=== PATIENT | female | born 1995 | race Caucasian/White ===

== ENCOUNTER 2018-01-30 23:30 | Emergency (ER) | payer BC, OTHER ==
[2018-01-30] MEDS ORDERED: ONDANSETRON 4 MG/2 ML VIAL ONE ×2 (23:45→23:49)
[2018-01-30] MEDS ORDERED: NA CHLORIDE 0.9% 1,000 ML ONE (23:49)
[2018-01-30 23:58] LABS: Absolute Lymphocytes (CBC) 2.6 K/uL (0.7-4.9); Absolute Monocytes 0.9 K/uL (0.1-1.3); Absolute Neutrophil 8.8 K/uL (1.8-8.0); Basophils % 0.7 % (0-1.3); Eosinophils % 0.9 % (0-4.4); Hematocrit 37.8 % (36.0-45.0); MCH 30.6 pg (27.0-35.0); MCV 88.6 fL (80-100); MPV 7.6 fL (7.6-11.3); Monocytes % 7.5 % (3.3-12.3); RBC Red Blood Cell Count 4.26 M/uL (3.86-4.86)
[2018-01-31 00:02] LABS: Protime INR 1.02
[2018-01-31 00:10] LABS: Bicarbonate 21 mEq/L (21-31); Glucose Level 117 mg/dL (65-120); Lipase 21 U/L (22-51); Potassium 3.2 mEq/L (3.6-5.0); Sodium Level 137 mEq/L (135-145)
[2018-01-31 00:16] LABS: ALT/SGPT 20 IU/L (10-60); AST/SGOT 22 IU/L (10-42); Albumin 4.2 g/dL (3.2-5.5); Alkaline Phosphatase 52 IU/L (42-121); Amylase Level 42 U/L (28-100); BUN Blood Urea Nitrogen 19 mg/dL (6-20); Bilirubin Direct < 0.1 mg/dL (0-0.2); Bilirubin Total 0.4 mg/dL (0.3-1.2); Creatine Phosphokinase 78 IU/L (22-269); Magnesium 1.7 mg/dL (1.8-2.5); Protein, Total 7.6 g/dL (6.0-8.3)
[2018-01-31 00:19] LABS: CKMB Creatine Kinase MB 0.9 ng/ml (0.3-4.0)
[2018-01-31 00:56] LABS: Urine Blood NEGATIVE (NEG); Urine Glucose NEGATIVE (NEG); Urine Protein NEGATIVE (NEG); Urine pH 6.5 (5.0-7.0)
--- NOTE | 2018-01-31 01:20 | ER ---
Nurse's Notes [facility] Name: Rosa Agee Age: 22 yrs Sex: Female : 1995 Arrival Date: 01/30/2018 Time: 23:32 Bed 6 Private MD: Diagnosis: Dehydration;Hypomagnesemia;Hypokalemia Presentation: 01/30 23:32 Presenting complaint: EMS states: they were called for pt drinking at local bar felt ak1 light headed with near syncopal episode. pt A\T\OX4 in ER6. no LOC reported. Transition of care: patient was not received from another setting of care. Onset of symptoms was January 30, 2018. Initial Sepsis Screen: Does the patient meet any 2 criteria? No. Patient's initial sepsis screen is negative. Does the patient have a suspected source of infection? No. Patient's initial sepsis screen is negative. Care prior to arrival: 22g to right hand. 23:32 Method Of Arrival: EMS: [facility] ak1 23:32 Acuity: YANELY 3 ak1 Triage Assessment: 23:35 General: Appears in no apparent distress. Behavior is calm, cooperative. Pain: Denies ak1 pain. EENT: No signs and/or symptoms were reported regarding the EENT system. Neuro: Level of Consciousness is awake, alert, obeys commands, Oriented to person, place, time, situation, Coping Machine Operator are equal bilaterally Moves all extremities. Gait is steady, Speech is normal, Facial symmetry appears normal, Pupils are PERRLA. Cardiovascular: No deficits noted. Respiratory: No deficits noted. GI: Reports nausea. : No signs and/or symptoms were reported regarding the genitourinary system. Derm: No signs and/or symptoms reported regarding the dermatologic system. Musculoskeletal: No signs and/or symptoms reported regarding the musculoskeletal system. 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 - Social history:: Smoking status: Patient/guardian denies using tobacco. - Family history:: not pertinent. - Hospitalizations: : No recent hospitalization is reported. - History obtained from: mother. Screenin:37 Abuse screen: Denies threats or abuse. Denies injuries from another. Nutritional ak1 screening: No deficits noted. Tuberculosis screening: No symptoms or risk factors identified. Fall Risk None identified. Assessment: 23:39 General: Appears in no apparent distress. Behavior is calm, cooperative, see triage ak1 assessment. 01/31 01:07 Reassessment: Patient appears in no apparent distress at this time. No changes from ak1 previously documented assessment. Patient and/or family updated on plan of care and expected duration. Pain level reassessed. Patient is alert, oriented x 3, equal unlabored respirations, skin warm/dry/pink. Patient states symptoms have improved. Vital Signs: 01/30 23:35 BP 108 / 70 LA Sitting (auto/reg); Pulse 66; Resp 16; Temp 98.4(O); Pulse Ox 98% on ak1 R/A; Weight 68.04 kg (R); Height 5 ft. 3 in. (160.02 cm) (R); Pain 0/10; 23:51 BP 106 / 60 Supine; Pulse 63; mt 23:51 BP 102 / 59 Sitting; Pulse 59; mt 23:51 BP 90 / 73 Standing; Pulse 88; mt 01/31 00:45 BP 117 / 67; Pulse 67; Resp 16; Pulse Ox 98% on R/A; Pain 0/10; ak1 01:07 BP 111 / 67; Pulse 62; Resp 16; Pulse Ox 99% on R/A; Pain 0/10; ak1 01/30 23:35 Body Mass Index 26.57 (68.04 kg, 160.02 cm) ak1 ED Course: 01/30 23:32 Patient arrived in ED. am2 23:32 Monica Kerr, RN is Primary Nurse. ak1 23:33 Juliet Carlos FNP is PHCP. kav 23:33 Alejandro Lott MD is Attending Physician. kav 23:34 Triage completed. ak1 23:35 Arm band placed on Patient placed in an exam room, on a stretcher, on pulse oximetry, ak1 Patient notified of wait time. 23:37 Patient has correct armband on for positive identification. Placed in gown. Bed in low ak1 position. Call light in reach. Side rails up X 1. retail buyer on. Pulse ox on. NIBP on. 23:37 Maintain EMS IV. Dressing intact. Good blood return noted. Site clean \T\ dry. Gauge \T\ ak 1 site: 22g right hand. 01/31 01:35 No provider procedures requiring assistance completed. IV discontinued, intact, ak1 bleeding controlled, No redness/swelling at site. Pressure dressing applied. Administered Medications: 01/30 23:50 Drug: NS 0.9% 1000 ml Route: IV; Rate: 1 bolus; Site: right hand; ak1 01/31 01:06 Follow up: IV Status: Completed infusion ak1 01/30 23:50 Drug: Zofran 4 mg Route: IVP; Site: right hand; ak1 01/31 00:29 Follow up: Response: No adverse reaction ak1 01:06 Follow up: Response: No adverse reaction ak1 01:35 Drug: Potassium Chloride 20 mEq Route: PO; ak1 01:35 Follow up: Response: Medication administered at discharge. ak1 01:35 Drug: Magnesium 400 mg Route: PO; ak1 01:35 Follow up: Response: Medication administered at discharge. ak1 Outcome: 01:19 Discharge ordered by . gomez 01:36 Discharged to home ambulatory, with family. ak1 01:36 Condition: good 01:36 Discharge instructions given to patient, family, Instructed on discharge instructions, follow up and referral plans. no drinking with medication, no driving heavy equipment, medication usage, Demonstrated understanding of instructions, follow-up care, medications, Prescriptions given X 1. 01:36 Patient left the ED. ak1 Signatures: Juliet Carlos, INTERNET ARCHITECT Monica Beal RN RN ak1 Elizabeth Montilla Moriah mt Corrections: (The following items were deleted from the chart) 01/30 23:52 23:37 Inserted saline lock: 22 gauge in right hand, using aseptic technique. ak1 ak1
--- NOTE | 2018-01-31 01:20 | EDPHYS ---
Physician Documentation [facility] Name: Rosa Agee Age: 22 yrs Sex: Female : 1995 Arrival Date: 01/30/2018 Time: 23:32 Bed 6 Private MD: ED Physician Alejandro Lott HPI: 01/30 23:41 This 22 yrs old Female presents to ER via EMS with complaints of Near Syncope.kav 01/31 00:32 The patient has experienced near-syncope, almost passed out. Onset: The kav symptoms/episode began/occurred acutely, just prior to arrival. Duration: This was a single episode. Context: the episode(s) was witnessed, by family, mother. Associated injury: The patient did not suffer any apparent associated injury. Associated signs and symptoms: Pertinent positives: diaphoresis, lightheadedness, nausea, Pertinent negatives: abdominal pain, agitation, ataxia, blurred vision, chest pain, combativeness, confusion, diarrhea, headache, numbness, palpitations, not seizure, shortness of breath, tingling, vertigo, vomiting, weakness. Current symptoms: Currently, the patient is not experiencing any symptoms, the patient feels back to baseline, no decreased level of consciousness, no confusion, no dysphasia, no headache, no paralysis, no visual changes. The patient has not experienced similar symptoms in the past. pt reports being at [employer] last week and became dehydrated. she consumed an alcoholic beverage this evening and had a near syncopal episode. 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 - Social history:: Smoking status: Patient/guardian denies using tobacco. - Family history:: not pertinent. - Hospitalizations: : No recent hospitalization is reported. - History obtained from: mother. ROS: 01/31 00:35 Constitutional: Negative for fever, chills, and weight loss, Eyes: Negative for injury, kav pain, redness, and discharge, ENT: Negative for injury, pain, and discharge, Neck: Negative for injury, pain, and swelling, Cardiovascular: Negative for chest pain, palpitations, and edema, Respiratory: Negative for shortness of breath, cough, wheezing, and pleuritic chest pain, Abdomen/GI: Negative for abdominal pain, nausea, vomiting, diarrhea, and constipation, Back: Negative for injury and pain, : Negative for injury, bleeding, discharge, and swelling, MS/Extremity: Negative for injury and deformity, Skin: Negative for injury, rash, and discoloration, Psych: Negative for depression, anxiety, suicide ideation, homicidal ideation, and hallucinations, Allergy/Immunology: Negative for hives, rash, and allergies, Endocrine: Negative for neck swelling, polydipsia, polyuria, polyphagia, and marked weight changes, Hematologic/Lymphatic: Negative for swollen nodes, abnormal bleeding, and unusual bruising. Neuro: Positive for near syncope, Negative for altered mental status, dizziness, gait disturbance, headache, hearing loss, loss of consciousness, numbness, seizure activity, speech changes, syncope, tingling, tinnitus, tremor, visual changes, weakness. Exam: 00:35 Constitutional: This is a well developed, well nourished patient who is awake, alert, kav and in no acute distress. Head/Face: Normocephalic, atraumatic. Eyes: Pupils equal round and reactive to light, extra-ocular motions intact. Lids and lashes normal. Conjunctiva and sclera are non-icteric and not injected. Cornea within normal limits. Periorbital areas with no swelling, redness, or edema. ENT: Nares patent. No nasal discharge, no septal abnormalities noted. Tympanic membranes are normal and external auditory canals are clear. Oropharynx with no redness, swelling, or masses, exudates, or evidence of obstruction, uvula midline. Mucous membranes moist. Neck: Trachea midline, no thyromegaly or masses palpated, and no cervical lymphadenopathy. Supple, full range of motion without nuchal rigidity, or vertebral point tenderness. No Meningismus. Chest/axilla: Normal chest wall appearance and motion. Nontender with no deformity. No lesions are appreciated. Cardiovascular: Regular rate and rhythm with a normal S1 and S2. No gallops, murmurs, or rubs. Normal PMI, no JVD. No pulse deficits. Respiratory: Lungs have equal breath sounds bilaterally, clear to auscultation and percussion. No rales, rhonchi or wheezes noted. No increased work of breathing, no retractions or nasal flaring. Abdomen/GI: Soft, non-tender, with normal bowel sounds. No distension or tympany. No guarding or rebound. No evidence of tenderness throughout. Back: No spinal tenderness. No costovertebral tenderness. Full range of motion. Skin: Warm, dry with normal turgor. Normal color with no rashes, no lesions, and no evidence of cellulitis. MS/ Extremity: Pulses equal, no cyanosis. Neurovascular intact. Full, normal range of motion. Psych: Awake, alert, with orientation to person, place and time. Behavior, mood, and affect are within normal limits. 00:35 Neuro: Orientation: is normal, appropriate for stated age, no acute changes, per family, Mentation: is normal, appropriate for stated age, no acute changes, responsive to voice lucid, able to follow commands, Memory: is normal, appropriate for stated age, no acute changes, per family, Cranial nerves: grossly normal, is grossly normal based on the patient's age, no acute changes, CN I not tested, CN II- XII are normal as tested, upper altitudinal loss noted, Funduscopic exam reveals no obvious abnormalities, discs that are sharp, extraocular movements are intact, facial droop noted on right, Nystagmus is absent. Cerebellar function: is grossly normal, is grossly normal based on the patient's age, no acute changes, Romberg testing is negative, normal finger to nose testing, heel to rodriguez testing is normal, able to perform alternating rapid hand movements, Motor: is normal, Sensation: is normal, no obvious gross deficits, appropriate no acute changes, Gait: is steady, appropriate for age, Deep tendon reflexes are normal, Babinski testing is normal, seizure activity, is not displayed by the patient, Abnormal movements: there are no abnormal movements. Vital Signs: 01/30 23:35 BP 108 / 70 LA Sitting (auto/reg); Pulse 66; Resp 16; Temp 98.4(O); Pulse Ox 98% on ak1 R/A; Weight 68.04 kg (R); Height 5 ft. 3 in. (160.02 cm) (R); Pain 0/10; 23:51 BP 106 / 60 Supine; Pulse 63; mt 23:51 BP 102 / 59 Sitting; Pulse 59; mt 23:51 BP 90 / 73 Standing; Pulse 88; mt 01/31 00:45 BP 117 / 67; Pulse 67; Resp 16; Pulse Ox 98% on R/A; Pain 0/10; ak1 01:07 BP 111 / 67; Pulse 62; Resp 16; Pulse Ox 99% on R/A; Pain 0/10; ak1 01/30 23:35 Body Mass Index 26.57 (68.04 kg, 160.02 cm) [facility] MDM: 01/30 23:33 Medical screening is not applicable. 01/31 00:35 ECG was reviewed by the Attending Physician. NSR \T\ 65 bpm. Data reviewed: vital signs, [facility] nurses notes, lab test result(s). 01/30 23:43 Order name: Amylase, Serum; Complete Time: : 01/31 01:17 Interpretation: Within normal limits. 01/30 23:43 Order name: Basic Metabolic Panel; Complete Time: 01/31 01:17 Interpretation: Normal except: K 3.2. 01/30 23:43 Order name: BNP; Complete Time: :01/31 01:17 Interpretation: Within normal limits. 01/30 23:43 Order name: CBC with Diff; Complete Time: : 01/31 01:17 Interpretation: Normal except: WBC 12.6; PLT 411; RDW 12.0; NEUT A 8.8. 01/30 23:43 Order name: Ckmb; Complete Time: : 01/31 01:17 Interpretation: Within normal limits. 01/30 23:43 Order name: CPK; Complete Time: :18 01/31 01:18 Interpretation: Within normal limits. 01/30 23:43 Order name: Hepatic Function; Complete Time: :01/31 01:18 Interpretation: Within normal limits. 01/30 23:43 Order name: Lipase; Complete Time: : 01/31 01:17 Interpretation: Abnormal. 01/30 23:43 Order name: Magnesium; Complete Time: :01/31 01:17 Interpretation: Abnormal. 01/30 23:43 Order name: Protime (+inr); Complete Time: 01:18 kav 01/31 01:18 Interpretation: Within normal limits. 01/30 23:43 Order name: Ptt, Activated; Complete Time: 01:17 kav 01/31 01:17 Interpretation: Abnormal. 01/30 23:43 Order name: Troponin (emerg Dept Use Only); Complete Time: 01:18 kav 01/31 01:18 Interpretation: Within normal limits. 01/31 00:39 Order name: Urine Dipstick--Ancillary (enter results); Complete Time: 01:16 01/31 01:16 Interpretation: Within normal limits. 01/31 00:39 Order name: Urine --Ancillary (enter results); Complete Time: :16 01/31 01:16 Interpretation: Within normal limits. 01/30 23:43 Order name: Urine Test (obtain specimen); Complete Time: 00:51 kav 01/30 23:43 Order name: EKG; Complete Time: 23:44 kav 01/30 23:43 Order name: Cardiac monitoring; Complete Time: 23:50 kav 01/30 23:43 Order name: EKG - Nurse/Tech; Complete Time: 23:51 kav 01/30 23:43 Order name: IV Saline Lock; Complete Time: 23:50 kav 01/30 23:44 Order name: Labs collected and sent; Complete Time: 23:50 kav 01/30 23:44 Order name: NPO; Complete Time: 23:50 kav 01/30 23:44 Order name: O2 Per Protocol; Complete Time: 23:50 kav 01/30 23:44 Order name: O2 Sat Monitoring; Complete Time: 23:50 kav 01/30 23:44 Order name: Urine Dipstick-Ancillary (obtain specimen); Complete Time: 00:51 kav Administered Medications: 01/30 23:50 Drug: NS 0.9% 1000 ml Route: IV; Rate: 1 bolus; Site: right hand; [facility] 01/31 01:06 Follow up: IV Status: Completed infusion wy1 01/30 23:50 Drug: Zofran 4 mg Route: IVP; Site: right hand; wy01/31 00:29 Follow up: Response: No adverse reaction ak1 01:06 Follow up: Response: No adverse reaction ak1 01:35 Drug: Potassium Chloride 20 mEq Route: PO; ak1 01:35 Follow up: Response: Medication administered at discharge. ak1 01:35 Drug: Magnesium 400 mg Route: PO; ak1 01:35 Follow up: Response: Medication administered at discharge. ak1 Disposition: 07:07 Co-signature as Attending Physician, Alejandro Lott MD I agree with the assessment and frank plan of care. Disposition: 01/31/18 01:19 Discharged to Home. Impression: Dehydration, Hypomagnesemia, Hypokalemia. - Condition is Stable. - Discharge Instructions: Hypomagnesemia, Dehydration, Adult, [id number], Hypokalemia. - Prescriptions for Zofran 4 mg Oral Tablet - take 1 tablet by ORAL route every 12 hours As needed; 20 tablet. - Medication Reconciliation Form, Thank You Letter, Antibiotic Education, Prescription Opioid Use form. - Follow up: Private Physician; When: 5 - 6 days; Reason: If symptoms return, Recheck today's complaints, Continuance of care, Re-evaluation by your physician. - Problem is new. - Symptoms have improved. - Notes: ensure adequate hydration Signatures: Dispatcher [employer] EDAlejandro Johnson MD MD cha Vern, Katherine, WAX ENGRAVER WAX ENGRAVER Monica Niño, RN RN ak1 Corrections: (The following items were deleted from the chart) 01:36 01:19 01/31/2018 01:19 Discharged to Home. Impression: Dehydration; Hypomagnesemia; ak1 Hypokalemia. Condition is Stable. Forms are Medication Reconciliation Form, Thank You Letter, Antibiotic Education, Prescription Opioid Use. Follow up: Private Physician; When: 5 - 6 days; Reason: If symptoms return, Recheck today's complaints, Continuance of care, Re-evaluation by your physician. Problem is new. Symptoms have improved. kav
[2018-01-31] MEDS ORDERED: POTASSIUM CL SA 10 MEQ TAB PO ONE (01:29)
[2018-01-31] MEDS ORDERED: MAGNESIUM OXIDE 400 MG TAB ONE (01:29)
--- NOTE | 2018-01-31 16:23 | EKG ---
Test Date: 2018-01-30 Test Time: 23:46:42 Bacteriologist Soil: TYRA MEASUREMENT RESULTS: Intervals: Rate: 65 CA: 142 QRSD: 92 QT: 412 QTc: 428 [place]: P: 59 CA: 142 QRS: 56 T: 31 INTERPRETIVE STATEMENTS: Normal sinus rhythm Normal ECG Compared to ECG 11/09/2011 10:15:51 Sinus bradycardia no longer present Electronically Signed On 01-31-18 16:20:00 CDT by Han Whitley
== END 2018-01-31 01:36 | disposition home or self-care (01) ==
LOC: ER 23:30
DX: E86.0 Dehydration (principal); E83.42 Hypomagnesemia; E87.6 Hypokalemia
CPT/HCPCS: 36415; 80048; 80076; 81003; 81025; 82150; 82550; 82553; 83690; 83735; 83880; 84484; 85025; 85610; 85730; 93005; 96361; 96374; 99284; J2405; J7030

== ENCOUNTER 2018-09-25 03:23 | Emergency (ER) | payer BC ==
[2018-09-25 04:21] LABS: Urine Blood TRACE (NEG); Urine Glucose NEGATIVE (NEG); Urine Protein TRACE (NEG); Urine Specific Gravity 1.015 (1.005-1.030); Urine pH 7.5 (5.0-7.0)
[2018-09-25 04:21] LABS: Urine Specific Gravity 1.015 (1.005-1.030)
[2018-09-25] MEDS ORDERED: NA CHLORIDE 0.9% 1,000 ML ONE (04:47)
[2018-09-25] MEDS ORDERED: ONDANSETRON 4 MG/2 ML VIAL ONE (04:47)
[2018-09-25] MEDS ORDERED: FAMOTIDINE 20 MG/2 ML VIAL IV ONE (05:03)
[2018-09-25 05:08] LABS: Absolute Lymphocytes (CBC) 1.8 K/uL (0.7-4.9); Absolute Monocytes 0.5 K/uL (0.1-1.3); Absolute Neutrophil 11.6 K/uL (1.8-8.0); Basophils % 0.6 % (0-1.3); Eosinophils % 0.3 % (0-4.4); Hematocrit 39.7 % (36.0-45.0); Lymphocytes % 12.7 % (15.3-44.8); Monocytes % 3.9 % (3.3-12.3); RBC Red Blood Cell Count 4.56 M/uL (3.86-4.86)
[2018-09-25 05:24] LABS: ALT/SGPT 29 U/L (12-78); AST/SGOT 16 U/L (15-37); Alkaline Phosphatase 69 U/L (45-117); BUN Blood Urea Nitrogen 15 mg/dL (7-18); Bicarbonate 24 mmol/L (21-32); Bilirubin Direct 0.2 mg/dL (0-0.2); Bilirubin Total 0.4 mg/dL (0.2-1.0); Glucose Level 146 mg/dL (74-106); Lipase 99 U/L (73-393); Potassium 3.9 mmol/L (3.5-5.1); Protein, Total 8.1 g/dL (6.4-8.2); Sodium Level 140 mmol/L (136-145)
[2018-09-25] MEDS ORDERED: PIPER/TAZO/NS 3.375gm 3.375 GM/100 ML BAG ONE (06:07)
[2018-09-25] MEDS ORDERED: FENTANYL CITR 100 MCG/2 ML ONE (06:21)
--- NOTE | 2018-09-25 06:43 | RAD REPORT ---
EXAM DESCRIPTION: RAD - Chest Single View - 09/25/2018 4:54 am CLINICAL HISTORY: Epigastric pain, back pain COMPARISON: None. TECHNIQUE: AP portable chest image was obtained 0445 hours . FINDINGS: Lungs are clear. Heart and vasculature are normal. No measurable pleural effusion and no p neumothorax. No acute bony abnormality seen. No acute aortic findings suspected. IMPRESSION: No acute cardiopulmonary process.
--- NOTE | 2018-09-25 07:02 | ER ---
Nurse's Notes [facility] Name: Rosa Agee Age: 22 yrs Sex: Female : 1995 Arrival Date: 09/25/2018 Time: 03:30 Bed 16 Private MD: Diagnosis: Abdominal tenderness;Chest pain, unspecified;Dyspnea, unspecified Presentation: 09/25 03:34 Presenting complaint: Patient states: epigastric pain, back pain and vomiting started ak1 suddenly at 0130. Transition of care: patient was not received from another setting of care. Onset of symptoms was September 25, 2018. Risk Assessment: Do you want to hurt yourself or someone else? Patient reports no desire to harm self or others. Initial Sepsis Screen: Does the patient meet any 2 criteria? No. Patient's initial sepsis screen is negative. Does the patient have a suspected source of infection? No. Patient's initial sepsis screen is negative. Care prior to arrival: None. 03:34 Acuity: YANELY 3 ak1 03:34 Method Of Arrival: Ambulatory ak1 Triage Assessment: 03:36 General: Appears uncomfortable, slender, Behavior is calm, cooperative. Pain: Complains ak1 of pain in epigastric area. EENT: No signs and/or symptoms were reported regarding the EENT system. Neuro: No deficits noted. Cardiovascular: Reports chest pain, Heart tones S1 S2 Rhythm is regular. Respiratory: No deficits noted. GI: Abdomen is flat, Bowel sounds present X 4 quads. Reports nausea, vomiting, since 0130. : No signs and/or symptoms were reported regarding the genitourinary system. Derm: No signs and/or symptoms reported regarding the dermatologic system. Musculoskeletal: No signs and/or symptoms reported regarding the musculoskeletal system. 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 - Social history:: Smoking status: Patient/guardian denies using tobacco. - Ebola Screening: : No symptoms or risks identified at this time. - Family history:: not pertinent. Screenin:37 Abuse screen: Denies threats or abuse. Denies injuries from another. Nutritional ak1 screening: No deficits noted. Tuberculosis screening: No symptoms or risk factors identified. Fall Risk None identified. Assessment: 03:37 Pain: Pain does not radiate. Pain began 3 hours ago. ak1 03:38 Reassessment: Patient appears in no apparent distress at this time. No changes from ak1 previously documented assessment. see triage assessment. 04:17 Reassessment: pt vomited X1 in ER16, yellow bile. ak1 04:57 Reassessment: Patient appears in no apparent distress at this time. No changes from ak1 previously documented assessment. Patient and/or family updated on plan of care and expected duration. Pain level reassessed. Patient is alert, oriented x 3, equal unlabored respirations, skin warm/dry/pink. Patient states feeling better. Patient states symptoms have improved. 06:00 Reassessment: Patient appears in no apparent distress at this time. No changes from ak1 previously documented assessment. Patient and/or family updated on plan of care and expected duration. Pain level reassessed. Patient is alert, oriented x 3, equal unlabored respirations, skin warm/dry/pink. pt returned from CT. 06:19 Reassessment: pt and family informed of wait for US. pt resting comfortably will ak1 continue to monitor. 06:52 Reassessment: US at bedside. ak1 Vital Signs: 03:33 BP 122 / 77; Pulse 104; Resp 16; Temp 98.7(O); Pulse Ox 99% on R/A; Weight 70.76 kg ak1 (R); Height 5 ft. 3 in. (160.02 cm) (R); Pain 5/10; 04:17 Pulse 82; Resp 19; Pulse Ox 99% on R/A; ak1 06:13 BP 113 / 65; Pulse 75; Resp 16; Temp 98.7(O); Pulse Ox 99% on R/A; Pain 5/10; ak1 03:33 Body Mass Index 27.63 (70.76 kg, 160.02 cm) ak1 ED Course: 03:30 Patient arrived in ED. ag3 03:33 Monica Kerr, RN is Primary Nurse. ak1 03:33 Arm band placed on Patient placed in an exam room, on a stretcher, on pulse oximetry, ak1 Patient notified of wait time. 03:35 Triage completed. ak1 03:37 Patient has correct armband on for positive identification. Bed in low position. Call ak1 light in reach. Side rails up X 1. Adult w/ patient. flight follower on. Pulse ox on. NIBP on. 03:37 Patient maintains SpO2 saturation greater than 95% on room air. ak1 03:54 Alejandro Lott MD is Attending Physician. frank 04:01 EKG completed in triage. Results shown to MD. Antipyretics given from triage as ordered ak1 by an ER provider. EKG done per protocol. Performed by ED Staff. Shown to ED physician. 04:08 Initial lab(s) drawn, by me, Urine collected: clean catch specimen, EKG done, by ED ak1 staff, reviewed by Alejandro Lott MD. Inserted saline lock: 22 gauge in left antecubital area, using aseptic technique. Blood collected. 04:56 Chest Single View XRAY In Process Unspecified. EDMS 05:15 Radiology exam delayed due to lab results not completed at this time. (HCG) kw1 (BUN/Creatinine). 05:[address] via wheelchair. kw1 05:49 CT Aorta for Dissection In Process Unspecified. EDMS 05:51 CT completed. Patient tolerated procedure well. Patient moved back from CT. kw1 07:01 Christiano Lester MD is Referral Physician. frank 07:01 Barry Smith MD is Referral Physician. frank 07:07 Ultrasound completed. Patient tolerated well. aa4 07:11 US Abdomen Limited In Process Unspecified. EDMS 07:24 No provider procedures requiring assistance completed. IV discontinued, intact, jl7 bleeding controlled, No redness/swelling at site. Pressure dressing applied. Administered Medications: 04:43 Drug: NS 0.9% 1000 ml Route: IV; Rate: 1 bolus; Site: left antecubital; ak1 06:08 Follow up: IV Status: Completed infusion; IV Intake: 1000ml ak1 04:43 Drug: Zofran 4 mg Route: IVP; Site: left antecubital; ak1 04:56 Follow up: Response: Nausea is decreased ak1 04:56 Drug: Pepcid 20 mg Route: IVP; Site: left antecubital; ak1 05:17 Follow up: Response: No adverse reaction ak1 06:08 Drug: Zosyn 3.375 grams Route: IVPB; Infused Over: 60 mins; Site: left antecubital; ak1 07:08 Follow up: Response: No adverse reaction; IV Status: Completed infusion jl7 06:18 Drug: fentaNYL (PF) 25 mcg Route: IVP; Site: left antecubital; ak1 06:18 Follow up: Response: Pain is decreased ak1 07:22 Not Given (Duplicate Order): fentaNYL (PF) 25 mcg IVP once jl7 Intake: 06:08 IV: 1000ml; Total: 1000ml. ak1 Outcome: 07:02 Discharge ordered by . frank 07:24 Discharged to home ambulatory, with family. jlNila 07:24 Condition: stable 07:24 Discharge instructions given to patient, family, Instructed on discharge instructions, follow up and referral plans. medication usage, Demonstrated understanding of instructions, follow-up care, medications, Prescriptions given X 2. 07:25 Patient left the ED. jl7 Signatures: Dispatcher [employer] EDMS Alejandro Lott MD MD cha Frazier, Amanda aa4 Monica Kerr RN RN ak1 Juancarlos Hamilton RN RN jl7 Tawnya Leung Alice ag3
--- NOTE | 2018-09-25 07:03 | EDPHYS ---
Physician Documentation [facility] Name: Rosa Aege Age: 22 yrs Sex: Female : 1995 Arrival Date: 09/25/2018 Time: 03:30 Bed 16 Private MD: ED Physician Alejandro Lott HPI: 09/25 04:24 This 22 yrs old Female presents to ER via Ambulatory with complaints of Chest frank Pain, Shortness Of Breath. 04:24 The patient or guardian reports chest pain that is located primarily in the epigastric frank area, anterior chest wall, bilaterally. The pain radiates to back. Associated signs and symptoms: The patient has no apparent associated signs or symptoms. The chest pain is described as a pressure, sharp. Duration: The patient or guardian reports a single episode, that is still ongoing. Modifying factors: The symptoms are alleviated by remaining still, the symptoms are aggravated by breathing, cough, movement, palpation of area. Severity of pain: At its worst the pain was moderate in the emergency department the pain is unchanged. The patient has not experienced similar symptoms in the past. 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 - Social history:: Smoking status: Patient/guardian denies using tobacco. - Ebola Screening: : No symptoms or risks identified at this time. - Family history:: not pertinent. ROS: 04:24 Constitutional: Negative for fever, chills, and weight loss, Eyes: Negative for injury, frank pain, redness, and discharge, ENT: Negative for injury, pain, and discharge, Neck: Negative for injury, pain, and swelling, Cardiovascular: Negative for chest pain, palpitations, and edema, Respiratory: Negative for shortness of breath, cough, wheezing, and pleuritic chest pain, Back: Negative for injury and pain, : Negative for injury, bleeding, discharge, and swelling, MS/Extremity: Negative for injury and deformity, Skin: Negative for injury, rash, and discoloration, Neuro: Negative for headache, weakness, numbness, tingling, and seizure, Psych: Negative for depression, anxiety, suicide ideation, homicidal ideation, and hallucinations, Allergy/Immunology: Negative for hives, rash, and allergies, Endocrine: Negative for neck swelling, polydipsia, polyuria, polyphagia, and marked weight changes, Hematologic/Lymphatic: Negative for swollen nodes, abnormal bleeding, and unusual bruising. 04:24 Abdomen/GI: Positive for abdominal pain, nausea and vomiting, of the epigastric area, right upper quadrant and left upper quadrant. Exam: 04:24 Constitutional: This is a well developed, well nourished patient who is awake, alert, frank and in no acute distress. Head/Face: Normocephalic, atraumatic. Eyes: Pupils equal round and reactive to light, extra-ocular motions intact. Lids and lashes normal. Conjunctiva and sclera are non-icteric and not injected. Cornea within normal limits. Periorbital areas with no swelling, redness, or edema. ENT: Nares patent. No nasal discharge, no septal abnormalities noted. Tympanic membranes are normal and external auditory canals are clear. Oropharynx with no redness, swelling, or masses, exudates, or evidence of obstruction, uvula midline. Mucous membranes moist. Neck: Trachea midline, no thyromegaly or masses palpated, and no cervical lymphadenopathy. Supple, full range of motion without nuchal rigidity, or vertebral point tenderness. No Meningismus. Chest/axilla: Normal chest wall appearance and motion. Nontender with no deformity. No lesions are appreciated. Cardiovascular: Regular rate and rhythm with a normal S1 and S2. No gallops, murmurs, or rubs. Normal PMI, no JVD. No pulse deficits. Respiratory: Lungs have equal breath sounds bilaterally, clear to auscultation and percussion. No rales, rhonchi or wheezes noted. No increased work of breathing, no retractions or nasal flaring. Back: No spinal tenderness. No costovertebral tenderness. Full range of motion. Skin: Warm, dry with normal turgor. Normal color with no rashes, no lesions, and no evidence of cellulitis. MS/ Extremity: Pulses equal, no cyanosis. Neurovascular intact. Full, normal range of motion. Neuro: Awake and alert, GCS 15, oriented to person, place, time, and situation. Cranial nerves II-XII grossly intact. Motor strength 5/5 in all extremities. Sensory grossly intact. Cerebellar exam normal. Normal gait. Psych: Awake, alert, with orientation to person, place and time. Behavior, mood, and affect are within normal limits. 04:24 Abdomen/GI: Inspection: abdomen appears normal, Bowel sounds: normal, Palpation: mild abdominal tenderness, moderate abdominal tenderness, in the epigastric area, right upper quadrant and left upper quadrant, Liver: no appreciated palpable abnormalities, Hernia: not appreciated. Vital Signs: 03:33 BP 122 / 77; Pulse 104; Resp 16; Temp 98.7(O); Pulse Ox 99% on R/A; Weight 70.76 kg ak1 (R); Height 5 ft. 3 in. (160.02 cm) (R); Pain 5/10; 04:17 Pulse 82; Resp 19; Pulse Ox 99% on R/A; ak1 06:13 BP 113 / 65; Pulse 75; Resp 16; Temp 98.7(O); Pulse Ox 99% on R/A; Pain 5/10; ak1 03:33 Body Mass Index 27.63 (70.76 kg, 160.02 cm) ak1 MDM: 03:54 Patient medically screened. [facility] 04:26 Data reviewed: vital signs, nurses notes, lab test result(s), EKG, radiologic studies, [facility] CT scan, plain films, ultrasound. 09/25 04:17 Order name: Urine Dipstick--Ancillary (enter results); Complete Time: 04:23 [facility] 09/25 04:19 Order name: Urine --Ancillary (enter results); Complete Time: 04:23 [facility] 09/25 04:23 Order name: Basic Metabolic Panel; Complete Time: 05:40 [facility] 09/25 04:23 Order name: CBC with Diff; Complete Time: 05:12 [facility] 09/25 04:23 Order name: Creatinine for Radiology; Complete Time: 05:40 [facility] 09/25 04:23 Order name: Hepatic Function; Complete Time: 05:40 [facility] 09/25 04:23 Order name: Lipase; Complete Time: 05:40 [facility] 09/25 04:23 Order name: Chest Single View XRAY; Complete Time: 06:44 [facility] 09/25 04:23 Order name: US Abdomen Limited [facility] 09/25 04:23 Order name: CT Aorta for Dissection [facility] 09/25 04:23 Order name: IV Saline Lock; Complete Time: 04:25 [facility] 09/25 04:23 Order name: Labs collected and sent; Complete Time: 04:25 [facility] 09/25 04:23 Order name: EKG; Complete Time: 04:24 [facility] 09/25 04:23 Order name: EKG - Nurse/Tech; Complete Time: 04:25 [facility] Administered Medications: 04:43 Drug: NS 0.9% 1000 ml Route: IV; Rate: 1 bolus; Site: left antecubital; ak1 06:08 Follow up: IV Status: Completed infusion; IV Intake: 1000ml ak1 04:43 Drug: Zofran 4 mg Route: IVP; Site: left antecubital; ak1 04:56 Follow up: Response: Nausea is decreased ak1 04:56 Drug: Pepcid 20 mg Route: IVP; Site: left antecubital; ak1 05:17 Follow up: Response: No adverse reaction ak1 06:08 Drug: Zosyn 3.375 grams Route: IVPB; Infused Over: 60 mins; Site: left antecubital; ak1 07:08 Follow up: Response: No adverse reaction; IV Status: Completed infusion jl7 06:18 Drug: fentaNYL (PF) 25 mcg Route: IVP; Site: left antecubital; ak1 06:18 Follow up: Response: Pain is decreased ak1 07:22 Not Given (Duplicate Order): fentaNYL (PF) 25 mcg IVP once jl7 Disposition: 09/25/18 07:02 Discharged to Home. Impression: Abdominal tenderness, Chest pain, unspecified, Dyspnea, unspecified. - Condition is Stable. - Discharge Instructions: Abdominal Pain, Adult, Nonspecific Chest Pain, Shortness of Breath, [id number], Abdominal Pain, Adult, Egqj-[id number], Nonspecific Chest Pain, Xjsj-oi-[id number]. - Prescriptions for Bentyl 20 mg Oral Tablet - take 1 tablet by ORAL route every 6 hours As needed; 20 tablet. Protonix 40 mg Oral Tablet - take 1 tablet by ORAL route once daily; 30 tablet. - Medication Reconciliation Form, Thank You Letter, Antibiotic Education, Prescription Opioid Use form. - Follow up: Private Physician; When: 2 - 3 days; Reason: Recheck today's complaints, Continuance of care, Re-evaluation by your physician. Follow up: Christiano Lester; When: 2 - 3 days; Reason: Recheck today's complaints, Continuance of care, Re-evaluation by your physician. Follow up: Barry Smith; When: 2 - 3 days; Reason: Recheck today's complaints, Re-evaluation by your physician. - Problem is new. - Symptoms have improved. Signatures: Dispatcher [employer] EDAlejandro Johnson MD MD cha Krenek, Amber, RN RN ak1 Juancarlos Hamilton RN RN jl7 Corrections: (The following items were deleted from the chart) 07:25 07:02 09/25/2018 07:02 Discharged to Home. Impression: Abdominal tenderness; Chest jl7 pain, unspecified; Dyspnea, unspecified. Condition is Stable. Discharge Instructions: Abdominal Pain, Adult, Nonspecific Chest Pain, Shortness of Breath, [id number], Abdominal Pain, Adult, Evbn-gj-[id number], Nonspecific Chest Pain, Irkm-uy-Vrso. Prescriptions for Bentyl 20 mg Oral Tablet - take 1 tablet by ORAL route every 6 hours As needed; 20 tablet, Protonix 40 mg Oral Tablet - take 1 tablet by ORAL route once daily; 30 tablet. and Forms are Medication Reconciliation Form, Thank You Letter, Antibiotic Education, Prescription Opioid Use. Follow up: Private Physician; When: 2 - 3 days; Reason: Recheck today's complaints, Continuance of care, Re-evaluation by your physician. Follow up: Christiano Lester; When: 2 - 3 days; Reason: Recheck today's complaints, Continuance of care, Re-evaluation by your physician. Follow up: Barry Smith; When: 2 - 3 days; Reason: Recheck today's complaints, Re-evaluation by your physician. Problem is new. Symptoms have improved. frank
--- NOTE | 2018-09-25 07:12 | EKG ---
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
--- NOTE | 2018-09-25 08:12 | RAD REPORT ---
EXAM DESCRIPTION: CT - Angio Aorta For Dissection - 09/25/2018 7:12 am CLINICAL HISTORY: Back pain, chest pain, epigastric pain A preliminary report was provided at the time of the study and reviewed prior to final report. COMPARISON: Chest films same date TECHNIQUE: Dynamically enhanced 3 mm thick images of the chest, abdomen, and upper pelvis were obtai laina during administration of approximately 150mL Isovue 370 IV contrast. Sagittal and coronal reconst ruction images were generated using MIP and reviewed. Exam utilizes a protocol to evaluate entire cou rse of the aorta. All CT scans are performed using dose optimization technique as appropriate and may include automated exposure control or mA/KV adjustment according to patient size. FINDINGS: Aorta is normal in diameter with no dissection or other acute aortic findings. Reconstruct ion images show no significant findings. Pulmonary arteries are normal as well. No cardiomegaly, pericardial thickening or pericardial effusio n. No mass or infiltrate in the lung parenchyma. No pleural thickening, pleural effusion or pneumothorax . No abnormal mediastinal or hilar mass or lymphadenopathy seen. No chest wall mass or abnormal axillar y lymphadenopathy. Celiac, SMA and renal arteries show no suspicious findings. Solid abdominal viscera and bowel show no significant findings. No mass or abnormal lymphadenopathy. No free air, free fluid or inflammatory stranding. No urinary bladder abnormality. Uterus and ovaries are normal for age. IMPRESSION: Negative CT scan of the aorta. No other significant findings on chest, abdomen and upper pelvis examination.
--- NOTE | 2018-09-25 08:13 | RAD REPORT ---
EXAM DESCRIPTION: US - Abdomen Exam Limited - 09/25/2018 7:10 am CLINICAL HISTORY: Abdominal pain, nausea and vomiting COMPARISON: None. FINDINGS: No gallstones, sludge or other abnormalities within the gallbladder lumen. There is no wal l thickening or pericholecystic fluid. No common duct stone or biliary tree dilatation identified. IMPRESSION: Normal gallbladder and biliary tree ultrasound.
== END 2018-09-25 07:25 | disposition home or self-care (01) ==
LOC: ER 03:23
DX: R10.819 Abdominal tenderness, unspecified site (principal); R06.00 Dyspnea, unspecified
CPT/HCPCS: 36415; 71045; 71275; 74175; 76705; 80048; 80076; 81003; 81025; 83690; 85025; 93005; 96361; 96365; 96375; 99285; J2405; J2543; J3010; J7030; Q9967